=== PATIENT | female | born 1970 | race American Indian/Alaskan Native ===

== ENCOUNTER 2018-02-27 09:41 | Emergency (ER) | payer OTHER ==
[2018-02-27 09:52] VITALS: TEMP 98; O2SAT 100
[2018-02-27 09:53] VITALS: BMI 47.8
[2018-02-27] MEDS ORDERED: Lidocaine Hydrochloride 1% 10 ML ONE (10:05)
--- NOTE | 2018-02-27 10:09 | ED PDOC ---
Upper Extremity Pain/Injury Time Seen by Provider: 02/27/18 10:00 Chief Complaint (Nursing): Abnormal Skin Integrity Chief Complaint (Provider): Stape In Left 3rd Digit History Per: Patient History/Exam Limitations: no limitations Onset/Duration Of Symptoms: Days (x1) Current Symptoms Are (Timing): Still Present Additional Complaint(s): 48-year-old female, with no significant past medical history, presenting due to staple in left middle finger since this morning. PMD: [facility] Past Medical History Reviewed: Historical Data, Nursing Documentation, Vital Signs Vital Signs: Last Vital Signs Temp 98 F 02/27/18 09:54 Pulse 91 H 02/27/18 09:54 Resp 22 02/27/18 09:54 BP 180/106 H 02/27/18 09:54 Pulse Ox 100 02/27/18 09:54 - Medical History PMH: No Chronic Diseases - Surgical History Surgical History: No Surg Hx - Family History Family History: States: Unknown Family Hx - Allergies Allergies/Adverse Reactions: Allergies Allergy/AdvReac Type Severity Reaction Status Date / Time No Known Allergies Allergy Verified 02/27/18 09:56 Review of Systems ROS Statement: Except As Marked, All Systems Reviewed And Found Negative Skin: Positive for: Other (staple protruding from left middle finger) Physical Exam - Reviewed Nursing Documentation Reviewed: Yes Vital Signs Reviewed: Yes - Physical Exam Appears: Positive for: Non-toxic, No Acute Distress Extremity: Positive for: Other (staple protruding from left middle finger) Neurologic/Psych: Positive for: Alert, Oriented - ECG O2 Sat by Pulse Oximetry: 100 (RA) Pulse Ox Interpretation: Normal Medical Decision Making Medical Decision Making: Plan: -Lidocaine Administered local anesthetic. Staple removed. Scribe Attestation: Documented by Thuan Dobbins, acting as a scribe for Grant Israel MD. Provider Scribe Attestation: All medical record entries made by the Scribe were at my direction and personally dictated by me. I have reviewed the chart and agree that the record accurately reflects my personal performance of the history, physical exam, medical decision making, and the department course for this patient. I have also personally directed, reviewed, and agree with the discharge instructions and disposition. Disposition - Clinical Impression Clinical Impression: Removal of staple - Patient ED Disposition Is Patient to be Admitted: No - Disposition Referrals: formerly [facility] [Outside] Disposition: Routine/Home Disposition Time: 10:14 Condition: FAIR Instructions: Staple Removal Forms: [employer] ([place])
[2018-02-27] MEDS ORDERED: Lidocaine 1% Inj (20ml) IJ ONE (10:15)
[2018-02-27 10:48] VITALS: BP 144/72; PULSE 80; RESP 17
== END 2018-02-27 10:45 | disposition home or self-care (01) ==
LOC: H.ER 09:41
DX: S60.453A Superficial foreign body of left middle finger, initial encounter (principal); W26.8XXA Contact with other sharp object(s), not elsewhere classified, initial encounter; Y92.89 Other specified places as the place of occurrence of the external cause